=== PATIENT | male | born 1975 | race Caucasian/White ===

== ENCOUNTER → 2019-07-28 11:45 | Outpatient (CLI) | payer OTHER, SELFPAY ==
--- NOTE | ~2019-07-28 | US_ITS ---
US thyroid INDICATION: Iodine deficiency. Thyroid goiter. TECHNIQUE: Real-time sonographic images of the thyroid gland were obtained. COMPARISON: No prior studies for comparison. FINDINGS: The right thyroid lobe measures 5.4 x 1.8 x 1.7 cm. The left thyroid lobe measures 4.6 x 1 .5 x 1.6 cm. There is heterogeneous echotexture and echogenicity throughout the thyroid gland. No dis crete nodules identified. Normal vascular flow is present. IMPRESSION: 1. Mildly enlarged heterogeneous thyroid gland without discrete mass. Reviewed, dictated and finalized at location A. [employer]
== END ==
PROVIDERS: PCP Family Medicine; Visit Provider Physician Assistant
DX: E01.0 Iodine-deficiency related diffuse (endemic) goiter (principal)
CPT/HCPCS: 76536

== ENCOUNTER → 2021-08-21 10:57 | Outpatient (CLI) | payer OTHER, SELFPAY ==
--- NOTE | ~2021-08-21 | XR_ITS ---
XR knee RT min 4V 08/21/2021 11:18 Indication: Right knee pain Procedure: 4 views right knee Comparison: Comparison to multiple prior studies sequentially, with oldest reviewed study dated 07/31. Findings: There is moderate tricompartment osteoarthritis of the right knee, most advanced in the med ial compartment. Small joint effusion. No fracture or traumatic malalignment. Impression: 1: Moderate tricompartment osteoarthritis of the right knee. 2: Small joint effusion. Reviewed, dictated and finalized at location B. Impression: 1: Moderate tricompartment osteoarthritis of the right knee. 2: Small joint effusion.
== END ==
PROVIDERS: PCP Family Medicine; Visit Provider Physician Assistant
DX: M17.11 Unilateral primary osteoarthritis, right knee (principal); M25.461 Effusion, right knee
CPT/HCPCS: 73564